=== PATIENT | male | born 1960 | race Caucasian/White ===

== ENCOUNTER → 2023-08-01 10:24 | Outpatient (CLI) | payer OTHER, SELFPAY ==
--- NOTE | 2023-08-01 10:26 | DI.ECHO.S_ITS ---
[facility] +---------+ : : [address] : [address] : : : : [id number] : : : : Phone: [phone]---------+ Echocardiogram Report + + :Name: ANAYELI LOPEZ Study Date: 08/01/2023 Height: 71 in : :[facility] ReadingLocation: Weight: 198 lb : : Gender: Male BSA: 2.1 m2 : :: 1960 Age: 62 yrs BP: 119/88 mmHg: :Reason For Study: ATRIAL FIBRILLATION : :Ordering Physician: RACHID, : :RENNY Performed By: Vikas Donahue : :Referring: RENNY RASHID : + + Interpretation Summary The ejection fraction is estimated to be 35-40%. There is mild to moderate global hypokinesis of the left ventricle. Left ventricular systolic function has moderately improved compared to the previous exam. There is mild mitral regurgitation. Procedure: A two-dimensional transthoracic echocardiogram with color flow and Doppler was performed. The study quality was technically adequate. Comparison is made with the echocardiogram of 01/19/23. The patient was in atrial fibrillation with heart rates between 63-88 bpm during the exam. Left Ventricle: The left ventricle is normal in size and wall thickness. The ejection fraction is estimated to be 35-40%. Left ventricular systolic function has moderately improved compared to the previous exam. There is mild to moderate global hypokinesis of the left ventricle. Right Ventricle: The right ventricle is borderline dilated. The right ventricular systolic function is normal. Atria: The left atrium is moderately dilated. The right atrium is moderately dilated. Mitral Valve: The mitral valve is normal in structure and function. There is no mitral valve stenosis. There is mild mitral regurgitation. Aortic Valve: The aortic valve is trileaflet. There is no aortic valve stenosis. No aortic regurgitation is present. Tricuspid Valve: The tricuspid valve is normal in structure and function. There is no tricuspid stenosis. There is trace tricuspid regurgitation. Pulmonic Valve: The pulmonic valve is not well visualized. There is no pulmonic valvular stenosis. There is a trace or physiologic amount of pulmonic regurgitation. Great Vessels: The aortic root is borderline dilated. The ascending aorta is at the upper limits of normal in size. The inferior vena cava was not visualized. Pericardium/ Pleura There is no pericardial effusion. There is no pleural effusion. MMode/2D Measurements & Calculations LVIDd: 4.8 cm LVOT diam: 2.5 cm LVIDs: 3.9 cm Ao root diam: 3.6 cm FS: 18.6 % asc Aorta Diam: 3.6 cm IVSd: 1.1 cm Ao Arch Diam (Prox Trans): 3.2 cm LVPWd: 1.0 cm LV arango. diameter/BSA (cm/m^2): 2.3 LV sys. diameter/BSA (cm/m^2): 1.9 LA A2 area: 27.3 cm2 RA long axis: 6.8 cm LA A4 area: 27.4 cm2 RA area: 28.0 cm2 LA length (vol): 6.4 cm RA vol: 98.4 ml LA vol: 99.2 ml RA : 46.9 ml/m2 LA vol index: 47.3 ml/m2 RVD1 (basal): 4.2 cm RVD2 (mid): 3.2 cm TAPSE: 1.3 cm Doppler Measurements & Calculations Ao V2 max: 87.4 cm/sec LVOT Max Roberto: 81.0 cm/sec Ao V2 mean: 66.0 cm/sec LV V1 max P.6 mmHg Ao max P.1 mmHg LV V1 VTI: 17.7 cm Ao mean P.9 mmHg CRYSTAL(I,D): 4.4 cm2 Ao V2 VTI: 19.4 cm CRYSTAL(V,D): 4.4 cm2 sev ratio: 0.91 CRYSTAL indexed to BSA (cm^2/m^2): 2.1 MV E max roberto: 72.8 cm/sec TR max roberto: 218.2 cm/sec MV A max roberto: 19.6 cm/sec TR max P.4 mmHg MV E/A: 3.7 PA V2 max: 63.9 cm/sec Med Peak E' Roberto: 7.5 cm/sec PA V2 mean: 47.4 cm/sec E/E' med: 9.8 PA mean P.97 mmHg Lat Peak E' Roberto: 12.6 cm/sec PA pr(Accel): 28.5 mmHg E/E' lat: 5.8 E/e' average: 7.8 MV dec time: 0.20 sec SV(LVOT): 84.6 ml Reading Physician:01:18 PM
== END ==
LOC: ECHO 10:25
PROVIDERS: Family Provider Family Medicine; Visit Provider Nurse Practitioner Family
DX: I34.0 Nonrheumatic mitral (valve) insufficiency (principal); I50.20 Unspecified systolic (congestive) heart failure; I48.91 Unspecified atrial fibrillation
CPT/HCPCS: 93306